=== PATIENT | female | born 1970 | race Caucasian/White ===

== ENCOUNTER 2018-01-02 06:13 | Day surgery (SDC) | payer BC, OTHER ==
[2017-12-12 16:13] VITALS: BMI 23.0
[2018-01-02] MEDS ORDERED: MIDAZOLAM HCL 2 MG/2 ML SINGLE DOSE VIAL ONE (08:04)
[2018-01-02] MEDS ORDERED: PROPOFOL 20 ML ONE ×2 (08:05)
[2018-01-02] MEDS ORDERED: ROCURONIUM BROMIDE 50 MG/5 ML VIAL ONE (08:08)
[2018-01-02] MEDS ORDERED: ceFAZolin SODIUM 1 GM VIAL IVPB ONE (08:15)
[2018-01-02] MEDS ORDERED: GLYCOPYRROLATE 0.2 MG/1 ML VIAL ONE (08:27)
[2018-01-02] MEDS ORDERED: DEXAMETHASONE SOD PHOSPHATE 4 MG/1 ML VIAL ONE (08:27)
[2018-01-02] MEDS ORDERED: LIDOCAINE HCL 2% JELLY (5 ML/TUBE) ONE (08:27)
[2018-01-02] MEDS ORDERED: ceFAZolin SODIUM 1 GM VIAL ONE (08:27)
[2018-01-02] MEDS ORDERED: KETOROLAC TROMETHAMINE 30 MG/1 ML VIAL ONE (08:27)
[2018-01-02] MEDS ORDERED: LIDOCAINE HCL/PF 2% SDV 5ML VIAL ONE (08:28)
[2018-01-02] MEDS ORDERED: VASOPRESSIN 20 UNITS/ML VIAL IV ONE (08:33)
[2018-01-02] MEDS ORDERED: NEOSTIGMINE METHYLSULFATE 0.5 MG/ML - 10 ML MDV ONE (09:59)
--- NOTE | 2018-01-02 10:27 | HP ---
Past Medical History - Primary Care Physician PCP:: Lobo Berrios - Admission Chief Complaint: menometrorrhagia , uterine prolapse History of Present Illness: 47 yo with hx of irregular ,heavy vaginal bleeding with dysmenorrhia , tx with hormonal tx did not help , has first degree uterine prolapse , admitted for vaginal hysterectomy, bilateral salpingectomy, possible laparotomy, rba to procedure has discussed with patient History Source: Patient Limitations to Obtaining History: No Limitations - Past Medical History Pulmonary: Yes: Asthma ...: 2 ...Para: 2 Heme/Onc: Yes: Anemia Psych: Yes: Depression - Past Surgical History Hx Myomectomy: No Hx Transabdominal Cerclage: No - Smoking History Smoking history: Never smoked Have you smoked in the past 12 months: No - Alcohol/Substance Use Hx Alcohol Use: Yes (ON OCCASION) - Social History Usual Living Arrangement: Yes: With Spouse History of Recent Travel: No Home Medications - Allergies Allergies/Adverse Reactions: Allergies Allergy/AdvReac Type Severity Reaction Status Date / Time No Known Drug Allergies Allergy Verified 01/02/18 06:48 - Home Medications Home Medications: Ambulatory Orders Citalopram Hydrobromide [Celexa -] 40 mg PO DAILY 06/16/14 Topiramate 100 mg PO DAILY 06/16/14 Nortriptyline HCl [Pamelor -] 100 mg PO DAILY 06/29/14 Review of Systems - Review of Systems Constitutional: reports: Malaise HENT: reports: No Symptoms Neck: reports: No Symptoms Cardiovascular: reports: No Symptoms Respiratory: reports: No Symptoms Gastrointestinal: reports: No Symptoms Genitourinary: reports: Vaginal Bleeding Breasts: reports: No Symptoms Reported Musculoskeletal: reports: No Symptoms Integumentary: reports: No Symptoms Neurological: reports: No Symptoms Endocrine: reports: No Symptoms Hematology/Lymphatic: reports: No Symptoms Psychiatric: reports: Depression 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 Vital Signs: Vital Signs Temperature 98.3 F 01/02/18 06:46 Pulse Rate 88 01/02/18 06:46 Respiratory Rate 20 01/02/18 06:46 Blood Pressure 103/76 01/02/18 06:46 O2 Sat by Pulse Oximetry (%) 99 01/02/18 06:45 Constitutional: Yes: Well Nourished, No Distress, Calm Eyes: Yes: WNL, Conjunctiva Clear, EOM Intact HENT: Yes: WNL, Atraumatic, Normocephalic Neck: Yes: WNL, Supple, Trachea Midline Cardiovascular: Yes: WNL, Regular Rate and Rhythm Respiratory: Yes: WNL, Regular, CTA Bilaterally Gastrointestinal: Yes: WNL ...Rectal Exam: Yes: WNL Renal/: Yes: WNL External Genitalia: Yes: Normal Vaginal Exam: Yes: Normal Cervix: Yes: Normal Uterus: Yes: Other (first degree prolapse, NS) Adnexa: Not Palpable: Left, Right Breast(s): Yes: WNL Musculoskeletal: Yes: WNL Extremities: Yes: WNL Edema: No Integumentary: Yes: WNL Neurological: Yes: WNL, Alert, Oriented ...Motor Strength: WNL Psychiatric: Yes: WNL, Alert, Oriented Problem List - Problem (1) Menometrorrhagia Code(s): N92.1 - EXCESSIVE AND FREQUENT MENSTRUATION WITH IRREGULAR CYCLE (2) Uterine prolapse Code(s): N81.4 - UTEROVAGINAL PROLAPSE, UNSPECIFIED Assessment/Plan vagianl hysterectomy, bilateral salpingectomy. possible laparotmy . RBA to procedure discussed with patient
[2018-01-02] MEDS ORDERED: ONDANSETRON 4 MG/2 ML VIAL IVPUSH PRN (10:32)
[2018-01-02] MEDS ORDERED: IBUPROFEN 800 MG/8 ML IJ IVPB PRN (10:32)
[2018-01-02] MEDS ORDERED: HYDROmorphone HCL CARPU-JECT 1 MG/1 ML DISP.SYRIN IVPUSH PRN (10:36)
--- NOTE | 2018-01-02 10:38 | OP ---
Operative Note - Note: Operative Date: 01/02/18 Pre-Operative Diagnosis: menometrorrhagia , , uterine prolapse Operation: vaginal hysterectomy, RT salpingectomy Findings: both ovaries normal Surgeon: Lobo Berrios Business Support Professional: Fortino Cornejo Anesthesiologist/INTER COM INSTALLER: Jo Wright MD Anesthesia: General Specimens Removed: uterus, cervix, RT tube Estimated Blood Loss (mls): 100 Drains, Volume Out (mls): 200 Blood Volume Replaced (mls): 0 Operative Report Dictated: Yes
[2018-01-02] MEDS ORDERED: LACTATED RINGERS SOLUTION 1,000 ML IV SCH (10:45)
[2018-01-02] MEDS ORDERED: ELECTROLYTE-148 SOLN 1,000 ML IV SCH (10:45)
--- NOTE | 2018-01-02 11:23 | OP ---
DATE OF OPERATION: 01/02/2018 PREOPERATIVE DIAGNOSES: Menometrorrhagia, uterine prolapse. POSTOPERATIVE DIAGNOSES: Menometrorrhagia, uterine prolapse. PROCEDURE: Vaginal hysterectomy and right salpingectomy. SURGEON: Lobo Berrios MD RADIATOR SPECIALIST: Fortino Cornejo MD ANESTHESIA: General. ANESTHESIOLOGIST: Jo Wright MD ESTIMATED BLOOD LOSS: 100 mL DESCRIPTION OF OPERATIVE PROCEDURE: Patient was taken to the operating room. Under adequate general anesthesia, examination under anesthesia revealed the external genitalia to be normal. Vagina was normal. Cervix was clean. No gross lesion. Uterus was normal size, retroverted, and with first-degree prolapse. Adnexa: No masses were palpable. Then, with the weighted speculum in the vagina, anterior lip of the cervix was grasped with 2 single-tooth tenaculum anterior and posterior and lateral. Vaginal mucosa was infiltrated with a dilute solution of vasopressin. Then, a circumferential incision was made around the cervix with the cautery, and then, the bladder was dissected with Metzenbaum scissors from the cervix and pushed up. Then, the posterior cul-de-sac was grasped with Allis clamps and entered with Metzenbaum scissors, and then, the weighted speculum was advanced into the posterior cul-de-sac. Then, uterosacral ligament was identified bilaterally, clamped with Sammi clamp, cut, and the clamp replaced with 0 Vicryl suture bilaterally. Then, these ligaments were held with straight clamps. Then, paracervical area was identified with Sammi clamp, and clamps were replaced with 0 Vicryl suture bilaterally. Then, uterine artery was identified bilaterally. Bladder was lifted, and uterine artery was grasped with Sammi clamp, cut, and the clamp replaced with 0 Vicryl suture bilaterally. At this time, the upper ligaments were reached, and then, the upper ligaments included the tube and ovary and ligament was grasped with the bipolar LigaSure cautery, cauterized, and cut. Then, a tie was placed at the base of the pedicles. Both ovaries were identified. The right tube at this time was grasped with the Allis clamp and cut along the mesosalpinx with the bipolar LigaSure and removed. The left tube was very short and difficult to reach. Therefore, we were unable to remove. Then, all the lap pad, sponge, and instrument counts were correct. No active bleeding was seen. Peritoneum was closed with a pursestring continuous 0 Vicryl suture, and then, the uterosacral ligament was fixed to the vaginal angle with interrupted suture of 0 Vicryl. Then, vaginal mucosa was closed with interrupted suture of 0 Vicryl. Then, Barrientos was inserted, clear urine. No active bleeding was seen. All the lap pads, sponge, and instrument counts were correct. Patient tolerated the procedure well, left the OR in good condition. Disha [id number]
[2018-01-02] MEDS ORDERED: ACETAMINOPHEN INJECTION 100 ML IVPB ONE (13:38)
[2018-01-02] MEDS ORDERED: ACETAMINOPHEN 1000 MG/100 ML VIAL (NON FORMULARY) IVPB ONE ×2 (13:42→16:07)
[2018-01-02] MEDS ORDERED: IBUPROFEN 800 MG/8 ML IJ IVPB ONE ×3 (14:40→14:50)
[2018-01-02] MEDS: oxyCODONE HCL 5 MG TABLET PO PRN ×3 (17:46→23:54)
[2018-01-02] MEDS: IBUPROFEN 600 MG TABLET (FP) PO PRN (21:48)
[2018-01-03] MEDS ORDERED: oxyCODONE HCL 5 MG TABLET PO PRN (00:03)
--- NOTE | 2018-01-03 09:24 | DS ---
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: Vital Signs Temperature 98.7 F 01/03/18 05:58 Pulse Rate 86 01/03/18 05:58 Respiratory Rate 18 01/03/18 05:58 Blood Pressure 115/72 01/03/18 05:58 O2 Sat by Pulse Oximetry (%) 100 01/02/18 21:00 Constitutional: Yes: Well Nourished, No Distress, Calm Eyes: Yes: WNL, Conjunctiva Clear, EOM Intact HENT: Yes: WNL, Atraumatic, Normocephalic Neck: Yes: WNL, Supple, Trachea Midline Cardiovascular: Yes: WNL, Regular Rate and Rhythm Respiratory: Yes: WNL, Regular, CTA Bilaterally Gastrointestinal: Yes: WNL ...Rectal Exam: Yes: WNL Renal/: Yes: WNL External Genitalia: Yes: Normal Breast(s): Yes: WNL Musculoskeletal: Yes: WNL Extremities: Yes: WNL Integumentary: Yes: WNL Neurological: Yes: WNL, Alert, Oriented ...Motor Strength: WNL Psychiatric: Yes: WNL, Alert, Oriented Discharge Summary Reason For Visit: MENOMETRORRHAGIA Current Active Problems Menometrorrhagia (Acute) Uterine prolapse (Acute) Procedures: Principal: vaginal hysterectomy Hospital Course: no complication Condition: Good - Instructions Diet, Activity, Other Instructions: regular diet , follow up office 2 weeks, if fever, pain, bleeding call MD Referrals: Lobo Berrios MD [Staff Physician] - Disposition: HOME - Home Medications Comprehensive Discharge Medication List: Ambulatory Orders Citalopram Hydrobromide [Celexa -] 40 mg PO DAILY 06/16/14 Topiramate 100 mg PO DAILY 06/16/14 Nortriptyline HCl [Pamelor -] 100 mg PO DAILY 06/29/14 Ibuprofen [Motrin -] 600 mg PO QID #28 tablet 01/02/18 Oxycodone HCl 5 mg PO QID PRN #20 tablet MDD 4 01/02/18
[2018-01-03] MEDS ORDERED: ENOXAPARIN NA (PORCINE) 40 MG/0.4 ML DISP.SYRIN SQ SCH (10:00)
[2018-01-03] MEDS: IBUPROFEN 600 MG TABLET (FP) PO PRN (10:03)
[2018-01-03 10:21] VITALS: BP 114/76; PULSE 88; TEMP 98.6
== END 2018-01-03 10:00 | disposition home or self-care (01) ==
LOC: JASUSAT 06:13 → EDSTATUS 09:00 → J3W 15:48 → JASUSAT 01-03 10:00
PROVIDERS: ATTEND Obstetrics & Gynecology
PROC: 0UT57ZZ Resection of Right Fallopian Tube, Via Natural or Artificial Opening (ICD-10-PCS; 2018-01-02)
PROC: 0UT97ZZ Resection of Uterus, Via Natural or Artificial Opening (ICD-10-PCS; principal; 2018-01-02 08:00)
DX: N92.1 Excessive and frequent menstruation with irregular cycle (principal); N81.4 Uterovaginal prolapse, unspecified
CPT/HCPCS: 36415; 84702; 84703; 86850; 86900; 86901; 88307-TC; 94760; J0131

== ENCOUNTER 2018-01-31 20:11 | Emergency (ER) | payer BC, OTHER ==
[2018-01-31 20:31] VITALS: BP 146/88; PULSE 94; TEMP 97.6; BMI 22.3
--- NOTE | 2018-01-31 20:31 | PDOC ---
Rapid Medical Evaluation Chief Complaint: Vaginal Bleeding Time Seen by Provider: 01/31/18 20:28 Medical Evaluation: Allergies Allergy/AdvReac Type Severity Reaction Status Date / Time No Known Drug Allergies Allergy Verified 01/02/18 06:48 01/31/18 20:28 Pt with c/o vaginal bleeding s/p hysterectomy one month ago. Now concerned for anemai and bleedingheavy. Pt is not in any acute distress and no sob Pt taken immediately to room 1 in ED for exam.
--- NOTE | 2018-01-31 20:49 | PDOC ---
History of Present Illness - General Chief Complaint: Vaginal Bleeding Stated Complaint: PAIN Time Seen by Provider: 01/31/18 20:28 History Source: Patient - History of Present Illness Initial Comments: 01/31/18 21:38 47 y.o. female presents with intermittent vaginal bleeding s/p recent () hysterectomy. Patient states some days she has spotting, however for the last 24 hours she has used 2 pads prompting her visit to the ED. Patient denies any shortness of breath, lightheadedness, palpitation. Patient contacted her OB-PROCEDURE RN, Dr. Claudio, who indicated patient should presents to the ED for further evaluation. Past History - Past Medical History Allergies/Adverse Reactions: Allergies Allergy/AdvReac Type Severity Reaction Status Date / Time No Known Drug Allergies Allergy Verified 01/02/18 06:48 Home Medications: Ambulatory Orders Citalopram Hydrobromide [Celexa -] 40 mg PO DAILY 06/16/14 Topiramate 100 mg PO DAILY 06/16/14 Nortriptyline HCl [Pamelor -] 100 mg PO DAILY 06/29/14 Anemia: Yes Asthma: No Cancer: No Cardiac Disorders: No CVA: No COPD: No CHF: No Dementia: No Diabetes: No GI Disorders: Yes (chrons COLITIS) Disorders: No HTN: Yes Hypercholesterolemia: No Liver Disease: No Seizures: No Thyroid Disease: No - Surgical History Abdominal Surgery: No Appendectomy: Yes Cardiac Surgery: No Cholecystectomy: Yes Lung Surgery: No Neurologic Surgery: No Orthopedic Surgery: Yes (RIGHT SHOULDER scapula) - Reproductive History Dysfunctional Uterine Bleeding: Yes - Suicide/Smoking/Psychosocial Hx Smoking History: Never smoked Have you smoked in the past 12 months: No Information on smoking cessation initiated: No Hx Alcohol Use: No Drug/Substance Use Hx: No Substance Use Type: None Hx Substance Use Treatment: No Review of Systems - Review of Systems Constitutional: No: Chills, Fever HEENTM: No: Recent change in vision Respiratory: No: Cough, Shortness of Breath Cardiac (ROS): No: Chest Pain, Lightheadedness, Palpitations, Syncope ABD/GI: No: Constipated, Diarrhea, Nausea, Vomiting : No: Burning, Dysuria *Physical Exam - Vital Signs Last Vital Signs Temp Pulse Resp BP Pulse Ox 97.6 F 94 H 18 146/88 100 01/31/18 20:29 01/31/18 20:29 01/31/18 20:29 01/31/18 20:29 01/31/18 20:29 - Physical Exam General Appearance: Yes: Nourished, Appropriately Dressed HEENT: positive: EOMI, CARLY Neck: positive: Trachea midline, Supple Respiratory/Chest: positive: Lungs Clear Cardiovascular: positive: S1, S2 Female Pelvic Exam: positive: other (Pelvic exam performed by Dr. Aguilera - multiple sutures C/D/I, mild vaginal spotting) Gastrointestinal/Abdominal: positive: Normal Bowel Sounds, Soft Extremity: positive: Normal Capillary Refill, Normal Inspection Integumentary: positive: Normal Color, Dry, Warm ED Treatment Course - LABORATORY CBC & Chemistry Diagram: 01/31/18 20:58 01/31/18 20:58 Medical Decision Making - Medical Decision Making 02/02/18 14:28 47 y.o. female with recent hysterectomy presents w/vaginal bleed. OB-Industrial Relations Representative (Dr. Aguilera) @ bedside examined patient and noted granulation tissue with intact sutures, some bleeding - silver nitrate stick applied with good hemostasis. Hb 12.5, patient counseled to f/u with OB-Industrial Relations Representative in the next 24 hours. *DC/Admit/Observation/Transfer Diagnosis at time of Disposition: Vaginal bleeding - Discharge Dispostion Disposition: HOME Condition at time of disposition: Good Admit: No - Referrals Referrals: Samm Ballesteros MD [Primary Care Provider] - - Patient Instructions Printed Discharge Instructions: DI for Vaginal Bleeding Additional Instructions: Please call your FLAME CHANNELER, Dr. Claudio, and make a follow up appointment for evaluation in the next 48 hours. Return to the ED for any new/worsening/ concerning symptoms. - Post Discharge Activity
[2018-01-31] MEDS ORDERED: SILVER NITRATE 75% APPLIC STCK 1 PKT EACH TP ONE (21:07)
[2018-01-31 21:09] LABS: BASO % 1.3 % (0-2.0); EOS % 7.7 % (0-4.5); HEMATOCRIT 37.3 % (32.4-45.2); HEMOGLOBIN 12.5 GM/dL (10.7-15.3); LYMPH % 29.7 % (8-40); MCH 29.9 pg (25.7-33.7); MCHC 33.6 g/dl (32.0-36.0); MEAN PLT VOLUME 8.5 fl (7.5-11.1); MONO % 11.1 % (3.8-10.2); NEUT % 50.2 % (42.8-82.8); PLATELET COUNT 351 K/MM3 (134-434); RBC 4.19 M/mm3 (3.60-5.2); RDW 12.8 % (11.6-15.6); WHITE BLOOD COUNT 7.2 K/mm3 (4.0-10.0)
[2018-01-31 21:22] LABS: INR 0.96 (0.82-1.09); PROTHROMBIN TIME (PATIENT) 10.9 SEC (9.98-11.88)
[2018-01-31 21:39] LABS: BLOOD UREA NITROGEN 19 mg/dL (7-18); CHLORIDE 107 mmol/L (98-107); GLUCOSE,RANDOM 77 mg/dL (74-106); POTASSIUM 3.6 mmol/L (3.5-5.1); SODIUM 140 mmol/L (136-145)
[2018-01-31 21:42] LABS: ALK PHOS 94 U/L (45-117); BILIRUBIN,TOTAL 0.2 mg/dL (0.2-1.0); SGOT/AST 13 U/L (15-37); SGPT/ALT 19 U/L (12-78); TOT PROT 7.5 g/dl (6.4-8.2)
[2018-01-31 21:47] LABS: ANION GAP 11 (8-16); CALCIUM 8.1 mg/dL (8.5-10.1); CO2 22 mmol/L (21-32)
--- NOTE | 2018-01-31 21:48 | PDOC ---
Attending Attestation - Resident Resident Name: Sheila Webster - ED Attending Attestation I have performed the following: I have examined & evaluated the patient, The case was reviewed & discussed with the resident, I agree w/resident's findings & plan, Exceptions are as noted - HPI HPI: 01/31/18 21:42 47 F with h/o heavy menstrual bleeding s/p hysterectomy 1 month ago presenting to ED with persistent vaginal spotting since her surgery. Pt denies passage of large volume of blood or clots. Denies F/C. Denies other vaginal discharge. Denies abdominal pain. Denies dysuria. Denies flank pain. Denies CP/SOB/ palpitations/lightheadedness. - Physicial Exam PE: 01/31/18 21:43 "GENERAL: Awake, alert, and fully oriented, in no acute distress HEAD: No signs of trauma EYES: PERRLA, EOMI, sclera anicteric, conjunctiva clear ENT: Auricles normal inspection, hearing grossly normal, nares patent, oropharynx clear without exudates. Moist mucosa NECK: Nontender, no stepoffs, Normal ROM, supple, no lymphadenopathy, JVD, or masses LUNGS: Breath sounds equal, clear to auscultation bilaterally. No wheezes, and no crackles HEART: Regular rate and rhythm, normal S1 and S2, no murmurs, rubs or gallops ABDOMEN: Soft, nontender, normoactive bowel sounds. No guarding, no rebound. No masses EXTREMITIES: Normal range of motion, no edema. No clubbing or cyanosis. No cords, erythema, or tenderness NEUROLOGICAL: Cranial nerves II through XII intact. 5/5 strength and sensation in all extremities, Normal speech, normal gait, normal cerebellar function SKIN: Warm, Dry, normal turgor, no rashes or lesions noted. : Small amount of blood in vault. Surgical wound with small amount of bleeding - Medical Decision Making 01/31/18 21:44 47 F with vaginal bleeding s/p hysterectomy 1 month ago. ?wound dehiscence. Pt HD stable with no evidence of significant hemorrhage. - Labs - OB consult 01/31/18 21:48 Pt evaluated by OB, who applied silver nitrate to wound with good hemostasis. Pt is well appearing, with normal vitals. Clinically stable for DC at this time. I discussed the physical exam findings, ancillary test results and final diagnoses with the patient. I answered all of the patient's questions. The patient was satisfied with the care received and felt comfortable with the discharge plan and treatment plan. The patient agrees to follow up with the primary care physician within 24-72 hours.
--- NOTE | 2018-01-31 21:48 | CON.OBG ---
Consult Consult Specialty:: gynecology - History of Present Illness Chief Complaint: vaginal bleeding History of Present Illness: 47 yo POD # 29 s/p vaginal hysterectomy by Dr. Berrios who presented with chief complaint of heavy vaginal bleeding. Patient reports has had light bleeding since approximately 1-2 weeks after the surgery. Bleeding was described as light, no clotting. Reports used approximately 6 pantyliners in a day. She reports feeling sudden passage of blood and noticed a large clot (approximately 4 cm) and heavy bright red blood, using about 2 pads in 1 hour. She reports feeling tired, however attributes it to waking early for work. She denies any sexual activity since the surgery, reports she returned to work earlier than she was supposed to and also has not been limiting her physical activities after the surgery. Today she reported she went shopping and was lifting heavy bags. She denies any fevers or chills. She denies any chest pain or shortnes of breath. She denies any changes in bowel or bladder habits. 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 LS Lysis of adhesions. Sinus surgery - Alcohol/Substance Use Hx Alcohol Use: No - Smoking History Smoking history: Never smoked Have you smoked in the past 12 months: No - Social History Usual Living Arrangement: With Spouse History of Recent Travel: No Home Medications - Allergies Allergies/Adverse Reactions: Allergies Allergy/AdvReac Type Severity Reaction Status Date / Time No Known Drug Allergies Allergy Verified 01/02/18 06:48 - Home Medications Home Medications: Ambulatory Orders Citalopram Hydrobromide [Celexa -] 40 mg PO DAILY 06/16/14 Topiramate 100 mg PO DAILY 06/16/14 Nortriptyline HCl [Pamelor -] 100 mg PO DAILY 06/29/14 Family Disease History - Family Disease History Family History: Denies Review of Systems - Review of Systems Constitutional: reports: Other (tired) HENT: reports: No Symptoms Neck: reports: No Symptoms Cardiovascular: reports: No Symptoms Respiratory: reports: No Symptoms Genitourinary: reports: Vaginal Bleeding Neurological: reports: No Symptoms Endocrine: reports: No Symptoms Hematology/Lymphatic: reports: No Symptoms 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 No: Tenderness Vaginal Exam: Yes: Other (Cuff intact, sutures in place. Area of granulation tissue noted, scant bleeding noted. No active on valsalva.) Extremities: No: Delayed Capillary Refill Neurological: Yes: Oriented ...Motor Strength: WNL Psychiatric: Yes: Alert, Oriented Labs: CBC, BMP 01/31/18 20:58 01/31/18 20:58 Assessment/Plan 47 yo POD # 29 s/p vaginal hysterectomy with heavy bleeding at home now stable. 1. Vaginal cuff examined and probed, found to be intact. Granulation tissue noted with scant bleeding. Area cauterized with silver nitrate. No active bleeding at the end of the exam. 2. Discussed precautions, continue pelvic rest, encouraged no heavy lifting. 3. Vaginal bleeding precautions reviewed 4. Patient to RTO on Monday or Monday for followup
== END 2018-01-31 21:48 | disposition home or self-care (01) ==
LOC: JER 20:11 → SUPCPDRO 20:11 → JER 21:48
DX: N93.9 Abnormal uterine and vaginal bleeding, unspecified (principal); I10 Essential (primary) hypertension; K50.90 Crohn's disease, unspecified, without complications; D64.9 Anemia, unspecified
CPT/HCPCS: 36415; 80053; 85025; 85610; 85730; 86850; 86900; 86901; 99283-25

== ENCOUNTER 2023-06-27 13:48 | Emergency (ER) | payer BC, OTHER ==
[2023-06-27 14:04] VITALS: BP 136/96; PULSE 80; RESP 20; TEMP 98.9; BMI 23.1
[2023-06-27] MEDS ORDERED: SODIUM CHLORIDE 0.9% 500 ML INFUS.BAG IV ONE (14:30)
[2023-06-27] MEDS ORDERED: ACETAMINOPHEN 500 MG TABLET (FP) PO ONE (14:30)
[2023-06-27] MEDS ORDERED: ACETAMINOPHEN 325 MG TABLET (FP) ONE (14:35)
[2023-06-27] MEDS ORDERED: METOCLOPRAMIDE HCL INJECTION 10 MG/2 ML VIAL ONE (14:55)
[2023-06-27] MEDS ORDERED: MECLIZINE HCL 25 MG TABLET (FP) PO ONE (14:56)
[2023-06-27 15:05] LABS: EPITHELIAL CELLS FEW /hpf
[2023-06-27] MEDS ORDERED: MECLIZINE HCL 25 MG TABLET (FP) ONE (15:11)
[2023-06-27 15:22] LABS: HEMATOCRIT 39.6 % (32.4-45.2); HEMOGLOBIN 13.2 G/dL (10.7-15.3); MCH 30.3 pg (25.7-33.7); MCHC 33.2 g/dl (32.0-36.0); MEAN CELL VOLUME 91.3 fl (80-96); MEAN PLT VOLUME 7.7 fl (7.5-11.1); PLATELET COUNT 534.8 10^3/uL (134-434); RBC 4.34 10^6/uL (3.60-5.2); RDW 14.6 % (11.6-15.6); WHITE BLOOD COUNT 8.3 10^3/uL (4.0-10.8)
[2023-06-27 15:33] LABS: ALBUMIN 4.3 g/dl (3.4-5.0); BILIRUBIN,TOTAL 0.2 mg/dl (0.2-1); BLOOD UREA NITROGEN 19.8 mg/dl (7-18); CALCIUM 9.4 mg/dl (8.5-10.1); PHOSPHOROUS 4.03 (2.5-4.9); POTASSIUM 4.5 mmol/L (3.5-5.1); SGOT/AST 29.9 U/L (15-37); SGPT/ALT 161.6 U/L (7-52); TOT PROT 6.9 g/dl (6.4-8.2)
[2023-06-27 15:38] LABS: PLATELET ESTIMATE MOD INCREASED
[2023-06-27] MEDS ORDERED: ONDANSETRON 4 MG/2 ML VIAL IVPB ONE (17:29)
[2023-06-27] MEDS ORDERED: morphine CARPU-JECT 2 MG/1 ML DISP.SYRIN IVPUSH ONE (17:29)
[2023-06-27] MEDS ORDERED: morphine SULFATE 4 MG/ML VIAL ONE (17:30)
[2023-06-27] MEDS ORDERED: ONDANSETRON 4 MG/2 ML VIAL ONE (17:32)
== END 2023-06-27 19:08 | disposition home or self-care (01) ==
LOC: FER 13:48
PROC: 3E033GC Introduction of Other Therapeutic Substance into Peripheral Vein, Percutaneous Approach (ICD-10-PCS; principal; 2023-06-27)
PROC: 3E033GC Introduction of Other Therapeutic Substance into Peripheral Vein, Percutaneous Approach (ICD-10-PCS; 2023-06-27)
DX: S06.0X0A Concussion without loss of consciousness, initial encounter (principal); R53.1 Weakness; R51.9 Headache, unspecified; R42 Dizziness and giddiness; H53.8 Other visual disturbances; R11.10 Vomiting, unspecified; R26.81 Unsteadiness on feet; S30.1XXA Contusion of abdominal wall, initial encounter; W10.8XXA Fall (on) (from) other stairs and steps, initial encounter; Y93.01 Activity, walking, marching and hiking
CPT/HCPCS: 36415; 70450-TC; 70486-TC; 70496-TC; 70498-TC; 72125-TC; 80053; 81003; 81015; 83690; 83735; 84100; 84484; 85027; 87086; 93005; 99285-25; Q9967

== ENCOUNTER 2023-07-09 11:51 | Emergency (ER) | payer BC, OTHER ==
[2023-07-09 11:56] VITALS: BMI 23.1
[2023-07-09] MEDS ORDERED: ACETAMINOPHEN 1000 MG/100 ML BAG IVPB ONE (12:04)
[2023-07-09] MEDS ORDERED: LACTATED RINGERS SOLUTION 1000 ML INFUS.BAG IV ONE ×2 (12:04→14:55)
[2023-07-09] MEDS ORDERED: ONDANSETRON 4 MG/2 ML VIAL IVPUSH ONE (12:04)
[2023-07-09] MEDS ORDERED: ONDANSETRON 4 MG/2 ML VIAL ONE (12:29)
[2023-07-09] MEDS ORDERED: ACETAMINOPHEN INJECTION 100 ML IVPB ONE (12:30)
[2023-07-09 13:28] LABS: HEMATOCRIT 42.5 % (32.4-45.2); MCH 30.5 pg (25.7-33.7); MEAN CELL VOLUME 92.2 fl (80-96); MEAN PLT VOLUME 7.7 fl (7.5-11.1); PLATELET COUNT 429.9 10^3/uL (134-434); RBC 4.61 10^6/uL (3.60-5.2); RDW 15.1 % (11.6-15.6); WHITE BLOOD COUNT 8.4 10^3/uL (4.0-10.8)
[2023-07-09 13:33] LABS: ALBUMIN 4.3 g/dl (3.4-5.0); BLOOD UREA NITROGEN 25.4 mg/dl (7-18); CALCIUM 9.2 mg/dl (8.5-10.1); CREATININE 1.1 mg/dl (0.6-1.3); MAGNESIUM 1.9 mg/dL (1.8-2.4); POTASSIUM 3.7 mmol/L (3.5-5.1); SGOT/AST 61.6 U/L (15-37); SGPT/ALT 285.2 U/L (7-52); TOT PROT 6.8 g/dl (6.4-8.2)
[2023-07-09 13:34] LABS: EPITHELIAL CELLS FEW /hpf
[2023-07-09 14:59] LABS: BILIRUBIN,TOTAL 0.2 mg/dl (0.2-1)
[2023-07-09 15:04] LABS: ADD RBC MORPHOLOGY YES; ANISOCYTOSIS 1+; PLATELET ESTIMATE ADEQUATE
[2023-07-09 15:24] VITALS: BP 126/86; PULSE 89; RESP 15; TEMP 98.4
== END 2023-07-09 15:29 | disposition home or self-care (01) ==
LOC: FER 11:51
PROC: 3E033NZ Introduction of Analgesics, Hypnotics, Sedatives into Peripheral Vein, Percutaneous Approach (ICD-10-PCS; principal; 2023-07-09)
PROC: 3E033GC Introduction of Other Therapeutic Substance into Peripheral Vein, Percutaneous Approach (ICD-10-PCS; 2023-07-09)
DX: R11.2 Nausea with vomiting, unspecified (principal); R19.7 Diarrhea, unspecified; R79.89 Other specified abnormal findings of blood chemistry; R10.32 Left lower quadrant pain; R10.13 Epigastric pain; R00.0 Tachycardia, unspecified
CPT/HCPCS: 36415; 74177-TC; 80053; 81003; 81015; 81025; 83605; 83690; 83735; 85025; 99285-25; Q9967